=== PATIENT | male | born 2000 | race Caucasian/White ===

== ENCOUNTER → 2023-09-10 | Outpatient (CLI) | payer OTHER | END | disposition home or self-care (01) | LOC: RAD 13:06 | PROVIDERS: ATTEND Family Medicine | DX: M54.50 Low back pain, unspecified (principal) ==

== ENCOUNTER 2023-11-28 13:14 | Emergency (ER) | payer BC ==
[~2023-11-28] VITALS: Ht 180.3 cm; Wt 77.1 kg
[2023-11-28] MEDS ORDERED: SODIUM CHLORIDE 0.9% 1,000 ML IV ONE (13:50)
[2023-11-28] MEDS ORDERED: SULFACETAMIDE OPH ONE (14:15)
== END 2023-11-28 14:43 | disposition home or self-care (01) ==
LOC: ED 13:14
DX: T26.41XA Burn of right eye and adnexa, part unspecified, initial encounter (principal); X08.8XXA Exposure to other specified smoke, fire and flames, initial encounter; Y93.89 Activity, other specified; Y92.89 Other specified places as the place of occurrence of the external cause; Y99.8 Other external cause status